=== PATIENT | male | born 1995 | race Caucasian/White ===

== ENCOUNTER 2018-12-03 13:05 | Emergency (ER) | payer OTHER ==
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
--- NOTE | 2018-12-03 14:04 | CT ---
Head CT Technique: Multiple axial sections through the brain were obtained. Intravenous contrast was not utilized. Comparison: No prior intracranial imaging. Findings: Ventricles along with basal cisterns and sulci over the convexities are within normal limits for the patient's age. No abnormal parenchymal densities are seen. No evidence of intracranial hemorrhage. No midline shift or mass effect is seen. Bone window settings were reviewed which show no acute calvarial abnormality. Visualized sinuses are clear. Impression: 1. Nothing acute is seen on noncontrast head CT exam. Diagnostic code #1
--- NOTE | 2018-12-03 14:04 | CR ---
Left forearm: Two views of the left forearm were obtained. Comparison: No prior forearm study. No fracture or other bony abnormality is seen. Mild soft tissue swelling is seen. Impression: 1. Incidental finding. Diagnostic code #2
--- NOTE | 2018-12-03 14:04 | CR ---
Lumbar spine: AP and lateral views of the lumbar spine were obtained. Comparison: No prior lumbar spine imaging. Vertebral body heights and disc spaces are maintained. Pedicles as well as transverse and spinous processes are intact. No subluxation or fracture is seen. Impression: 1. Unremarkable two-view lumbar spine exam. Diagnostic code #1
--- NOTE | 2018-12-03 14:04 | CT ---
CT facial bones Technique: Multiple axial sections through the facial bones were obtained. Reconstructed coronal and sagittal images were reviewed. Findings: Minimal mucosal thickening is seen within portions of the ethmoid sinuses which is felt to be incidental. No air-fluid levels are seen within the sinuses. Right and left globes are symmetric. Soft tissue air is noted within the soft tissues of the nasal septum compatible with soft tissue injury. Small fracture is seen within the anterior nasal spine. Other portions of the nasal bone appear intact. No additional fracture or other abnormality is appreciated. Impression: 1. Small fracture within the anterior nasal spine. Soft tissue air within the soft tissue portion of the nasal septum compatible with soft tissue injury. 2. No additional fracture or other acute facial bone abnormality is seen. Diagnostic code #3
== END 2018-12-03 14:45 | disposition home or self-care (01) ==
LOC: JD.ED 13:05
DX: S33.5XXA Sprain of ligaments of lumbar spine, initial encounter (principal); S00.83XA Contusion of other part of head, initial encounter; S50.12XA Contusion of left forearm, initial encounter; R04.0 Epistaxis; V89.0XXA Person injured in unspecified motor-vehicle accident, nontraffic, initial encounter
CPT/HCPCS: 70450; 70450-26; 70486; 70486-26; 72100; 72100-26; 73090-26-LT; 73090-LT; 99283; 99283-25